=== PATIENT | female | born 1955 | race Caucasian/White ===

== ENCOUNTER 2016-06-14 06:01 | Day surgery (SDC) | payer OTHER ==
[2016-06-14] MEDS ORDERED: BUPIVACAINE 0.25% 30 ML SDV ONE (06:45)
[2016-06-14] MEDS ORDERED: LIDO/EPI 1% **Not for Epidural 20 ML MDV ONE (06:46)
[2016-06-14] MEDS ORDERED: SILVER NITRATE APPLICATOR 1 APPL TP ONE (06:46)
[2016-06-14] MEDS ORDERED: PROPOFOL 200 MG/20 ML VIAL ONE ×2 (07:01)
[2016-06-14] MEDS ORDERED: fentaNYL 100 MCG/2 ML INJ ONE (07:01)
[2016-06-14] MEDS ORDERED: DEXAMETHASONE 4 MG/ML VIAL ONE (07:07)
[2016-06-14] MEDS ORDERED: LIDOCAINE 2% 5 ML SDV ONE (07:07)
[2016-06-14] MEDS ORDERED: ROCURONIUM 100 MG/10 ML VIAL ONE (07:07)
[2016-06-14] MEDS ORDERED: MIDAZOLAM 2 MG/2 ML VIAL ONE (07:16)
[2016-06-14] MEDS ORDERED: HYDROmorphONE/DILAUDID 2 MG/ML INJ ONE (08:04)
[2016-06-14] MEDS ORDERED: SUGAMMADEX SODIUM 200 MG/2 ML VIAL IVP ONE (08:57)
[2016-06-14] MEDS ORDERED: KETOROLAC 30 MG/1 ML SDV ONE (08:57)
--- NOTE | 2016-06-14 18:53 | GOP ---
[f rep st] OPERATIVE REPORT DATE OF OPERATION: 06/14/2016 SURGEON: Vivi Westbrook MD QUANTITATIVE ANALYST MARKETING: Stacey Roca M.D. ANESTHESIA: General. PREOPERATIVE DIAGNOSIS: 1. Complex left ovarian cyst. 2. Endometrial thickening on ultrasound. 3. Postmenopausal bleeding. 4. Perineal cyst. POSTOPERATIVE DIAGNOSIS: 1. Complex left ovarian cyst. 2. Endometrial thickening on ultrasound. 3. Postmenopausal bleeding. 4. Perineal cyst. PROCEDURE PERFORMED: 1. Laparoscopic bilateral salpingo-oophorectomy. 2. Hysteroscopy and dilatation and curettage. 3. Excision of peritoneal cyst. FINDINGS: 1. Intraoperatively the ovaries and fallopian tubes appeared normal. No obvious enlarged cyst was present. 2. The intrauterine cavity was visualized clearly and easily with bilateral ostia seen clearly. There was a thickening near the left tubal ostia posteriorly as well as an anterior thickening along the uterine wall. These areas were sampled directly and thickening removed under direct visualization. 3. A 1 cm cyst was noted on the patient's perineum and the decision was made to remove it intraoperatively. SPECIMENS: 1. Left and right fallopian tubes and ovaries. 2. Endometrial masses and curettings. 3. Perineal cyst. ESTIMATED BLOOD LOSS: Less than 20 cc. INDICATIONS: The patient is a 60-year-old menopausal female who has history of postmenopausal bleeding with a pelvic ultrasound showing a thickened endometrial lining with fluid present, as well as a complex cyst in the right ovary with a peripheral solid component. She had an endometrial biopsy that was negative and normal CA-125. She also reports a long history of having a perineal cyst that was bothersome. DESCRIPTION OF PROCEDURE: The patient was taken to the operating room where general anesthesia was found be adequate. Patient was prepared and draped in normal sterile fashion in the dorsal lithotomy position. A weighted speculum was placed in the patient's vagina and a Restrepo retractor used to visualize the cervix clearly. A single-toothed tenaculum was placed on the anterior lip of the cervix and a Roxana uterine manipulator was placed into the cervix to provide a means to manipulate the uterus. Attention was then turned to the patient's abdomen. A 5 mm skin incision was made after injection of local anesthetic which was 0.25% Marcaine. All future incisions were also injected with 0.25% Marcaine. A Veress needle was placed through this umbilical incision into the peritoneal cavity while tenting the abdominal wall. The abdomen was then insufflated easily with CO2 gas with appropriate entry CO2 gas pressures. Intraabdominal placement was also confirmed with use of a water-filled syringe. The Veress needle was removed and the 10 mm trocar was placed into the peritoneal cavity easily under direct visualization with the laparoscope. The patient was then placed in Trendelenburg positioning and 2 additional incisions were placed bilaterally, 2 cm superior and anterior to the iliac spines on each side using 5 mm trocars. The pelvis was surveyed. The uterus appeared normal. The left fallopian tube and ovary were grasped and the ovary was removed using the gyrus PK cautery by excising it from its attachments laterally to medially, 1st transecting the IP ligament, the mesosalpinx and then the utero-ovarian ligament. In a similar fashion the other tube and ovary were removed. Hemostasis was assured on each side and visualized clearly. The tubes and ovaries were removed separately through their own EndoCatch bag. The pedicles were examined closely and hemostasis was assured. All instruments were removed under direct visualization. The 5 mm incisions were closed with a subcuticular stitch of 4-0 Monocryl and Steri-Strips and dressings with Telfa and Tegaderm. Within the umbilical incision the fascia was reapproximated with a single interrupted stitch of 0 Vicryl. The skin was then closed with a subcuticular stitch of 4-0 Monocryl and Steri-Strips and bandage dressings were placed. Attention was then turned to the patient's vagina. The Roxana uterine manipulator was removed and the cervix was then gently and easily dilated up to 6 mm using Hegar dilators. The 0 degree 5 mm Anthony Clear hysteroscope was placed into the cervix and advanced into the uterine cavity under direct visualization. The ostia were seen clearly and findings were as described above. The 2.9 morcellator was then used to remove the thickening in front of the left fallopian tube as well as the thickening noted on the anterior uterine wall under direct visualization. The hysteroscope was then removed and a sharp curettage was performed. All endometrial curettings obtained from both the morcellation as well as the sharp curettage were sent to Pathology. The tenaculum was then removed and hemostasis was obtained with silver nitrate. The perineum was then noted to have a 1 cm enlarged cyst noted at the 5 o'clock position. This had not specifically been mentioned or noted on exam preoperatively but however it was noted to be abnormal and the patient was consented for any other necessary procedures. The decision was made to excise it. The cyst was grasped with an Allis clamp and removed using a 15 blade scalpel. It was removed intact and was not ruptured. The remaining incision was closed with single interrupted stitches of 3-0 Vicryl and hemostasis was noted. The patient was then awoken from anesthesia without any complications. All sponge, lap, and needle counts were correct x2. The patient was transferred to the PACU in stable and good condition. COMPLICATIONS: None. DRAINS: None. INTRAVENOUS FLUIDS: 600 cc. URINE OUTPUT: 275 cc. /[id number]/MODL MTDD
== END 2016-06-14 11:20 | disposition home or self-care (01) ==
LOC: FSGY 06:01
PROVIDERS: ATTEND Obstetrics & Gynecology
PROC: 0UT24ZZ Resection of Bilateral Ovaries, Percutaneous Endoscopic Approach (ICD-10-PCS; principal; 2016-06-14 07:15)
PROC: 0KB Muscles, Excision (ICD-10-PCS; principal; 2016-06-14 07:15)
PROC: 0UB98ZX Excision of Uterus, Via Natural or Artificial Opening Endoscopic, Diagnostic (ICD-10-PCS; principal; 2016-06-14 07:15)
PROC: 0UT74ZZ Resection of Bilateral Fallopian Tubes, Percutaneous Endoscopic Approach (ICD-10-PCS; principal; 2016-06-14 07:15)
DX: N83.202 Unspecified ovarian cyst, left side (principal); N95.0 Postmenopausal bleeding; E03.9 Hypothyroidism, unspecified; E78.5 Hyperlipidemia, unspecified; N89.8 Other specified noninflammatory disorders of vagina
CPT/HCPCS: 58558; 58661; C1782; J1100; J1170; J1885; J2250; J2704; J3010